=== PATIENT | male | born 1960 | race Caucasian/White ===

== ENCOUNTER 2018-09-25 10:34 | Emergency (ER) | payer BC, OTHER ==
[~2018-09-25] VITALS: Ht 175.3 cm; Wt 86.2 kg
--- OUTSIDE RECORDS SUMMARY | 2018-09-25 10:39 | XMS REPORT ---
Author Author RAFAL PATEL [facility] Address [address] [place], [place] [id number] Care Team Providers Care Fill Technician Name Role Phone RAFAL PATEL PCP Allergies and Adverse Reactions Name Reaction Notes NO KNOWN DRUG ALLERGIES Plan of Treatment Not available. Medications Not available. Problem List Not available. Vital Signs Date Time BP-Sys(mm[Hg] BP-Kalpana(mm[Hg]) HR(bpm) RR(rpm) Temp WT HT HC BMI BSA BMI Percentile O2 Sat(%) 03/18/2017 7:58:00 AM 126 mmHg 84 mmHg 75 bpm 16 rpm 98.5 F 203 lbs 69 in 29.98 kg/m2 2.12 m2 98 % 03/03/2015 9:51:00 AM 140 mmHg 80 mmHg 72 bpm 18 rpm 98 F 199 lbs 69 in 29.3869 kg/m 2.0963 m 100 % Social History Name Description Comments Tobacco Never smoker Alcohol Use - Occasional Uses seatbelts History of Procedures Not available. Results Summary Not available. History Of Immunizations Not available. History of Past Illness Name Date of Onset Comments NO SIGNIFICANT MEDICAL HX GIVEN DOT Physical Mar 25 2015 7:02AM Encounter for CDL (commercial driving license) exam Mar 18 2017 7:59AM Payers Not available. History of Encounters Visit Date Visit Type Provider 03/18/2017 Office visit RAFAL OSMAN 03/03/2015 Office visit RAFAL OSMAN
--- OUTSIDE RECORDS SUMMARY | 2018-09-25 10:39 | XMS REPORT | Continuity of Care Document ---
Author Organization Unknown Address Unknown Allergies There is no data. Medications There is no data. Problems There is no data. Procedures There is no data. Results There is no data. Encounters ACCT No. Visit Date/Time Discharge Status Pt. Type Provider Facility Loc./Unit Complaint [id number] 03/18/2017 11:22:43 03/18/2017 23:59:59 [facility] Outpatient RAFAL PAETL [id number] 03/03/2015 15:16:48 03/03/2015 23:59:59 [facility] Outpatient RAFAL PATEL
[2018-09-25] MEDS ORDERED: TETANUS,DIPTH,PERTUSS P/F (BOOSTRIX) 0.5 ML VIAL IM ONE (11:15)
[2018-09-25] MEDS ORDERED: LIDOCAINE 1% INJ 20 ML 20 ML VIAL INJ ONE (11:15)
[2018-09-25] MEDS ORDERED: CEPH500T PO (11:46)
--- NOTE | 2018-09-25 11:46 | ED Upper Extremity ---
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 Nursing Sepsis Screen: No Definite Risk History of Present Illness Date Seen by Provider: Sep 25, 2018 Time Seen by Provider: 11:10 Initial Comments 17-year-old male presents with an injury to his right hand. He was wo rking with a thread grinder wheel follow cut his right hand on the dorsal surface. He is unsure of his last tetanus vaccine, however he believes it was at least 5-8 years ago. He is right-hand dominant and denies any other problems. Onset: just prior to arrival Pain/Injury Location: right hand Method of Injury: incised Allergies and Home Medications Allergies Coded Allergies: No Known Drug Allergies (Unverified , 09/25/18) Home Medications Cephalexin 500 Mg Tablet, 500 MG PO TID Prescribed by: TEGAN JOHNSON on 09/25/18 1146 Patient Home Medication List Home Medication List Reviewed: Yes Review of Systems Constitutional: no symptoms reported, see HPI Skin: see HPI, other (laceration right hand) Past Dbboorq-Kxblno-Tzoudt Hx Past Med/Social Hx: Reviewed Nursing Past Med/Soc Hx Patient Social History Alcohol Use: Occasionally Uses Recreational Drug Use: No Smoking Status: Never a Smoker 2nd Hand Smoke Exposure: No Recent Foreign Travel: No Contact w/Someone Who Travel: No Recent Infectious Disease Expo: No Recent Hopitalizations: No Seasonal Allergies Seasonal Allergies: No Past Medical History Surgeries: Yes (CARPAL TUNNEL) Respiratory: No Cardiac: No Neurological: No Genitourinary: No Musculoskeletal: No Endocrine: No HEENT: Yes ("WARTS ON VOICEBOX") Psychosocial: No Physical Exam Vital Signs Vital Signs - First Documented 09/25/18 10:48 Temp 98.4 Pulse 87 Resp 20 B/P (MAP) 151/94 (113) Pulse Ox 100 Capillary Refill : Less Than 3 Seconds Height, Weight, BMI Height: 5'9.00" Weight: 190lbs. 0oz. 86.545553si; BMI Method:Stated General Appearance: WD/WN, no apparent distress Cardiovascular: normal peripheral pulses, regular rate, rhythm, no edema, no murmur Respiratory: chest non-tender, lungs clear, normal breath sounds Hand: normal ROM, Right, laceration (2.5 cm dorsum right hand), soft tissue tenderness Neurologic/Tendon: normal sensation, normal motor functions, normal tendon functions Neurologic/Psychiatric: no motor/sensory deficits, alert, normal mood/affect, oriented x 3 Skin: normal color Procedures/Interventions Wound Location: Upper Extremities (right hand, dorsum) Wound Length (cm): 2.5 Wound's Depth, Shape: superficial Wound Explored: clean Irrigated w/ Saline (ccs): 500 Betadine Prep?: Yes Anesthesia: 1% Lidocaine Volume Anesthetic (ccs): 5 Suture: Ethlion Suture Size: 4-0 Number of Sutures: 3 Sterile Dressing Applied?: Yes Progress 3 vertical mattress sutures, wound well approximated, no active bleeding. Sterile bulky dressing applied. Progress/Results/Core Measures Results/Orders My Orders Orders - TEGAN JOHNSON Dipht,Pertuss(Acell),Tet Adult (Boostrix (09/25/18 11:15) Lidocaine 1% Inj 20 Ml (Xylocaine 1% Inj (09/25/18 11:15) Medications Given in ED Current Medications Medications Dose Ordered Sig/Angelique Route Start Time Stop Time Status Last Admin Dose Admin Diphtheria/ Tetanus/Acell Pertussis 0.5 ml ONCE ONCE IM 09/25/18 11:15 09/25/18 11:16 DC 09/25/18 11:18 0.5 ML Lidocaine HCl 20 ml ONCE ONCE INJ 09/25/18 11:15 09/25/18 11:16 DC 09/25/18 11:19 20 ML Vital Signs/I&O 09/25/18 10:48 Temp 98.4 Pulse 87 Resp 20 B/P (MAP) 151/94 (113) Pulse Ox 100 Blood Pressure Mean: 113 Departure Impression Primary Impression: Laceration of right hand Qualified Codes: S61.411A - Laceration without foreign body of right hand, initial encounter Disposition: HOME, SELF-CARE Condition: Improved Departure-Patient Inst. Decision time for Depature: 11:40 Patient Instructions: Laceration Repair With Stitches (DC) Add. Discharge Instructions: Keep wound clean and dry for the next 24 hours and shower as normal. After showering apply peroxide and cover with a dressing or Band-Aid. May leave open to air, when at home. Take antibiotics as prescribed. You may alternate between Tylenol 650 mg and ibuprofen 600 mg every 4 hours for pain. Ice and elevate the hand for 20 minutes every 2 hours for swelling or pain. Avoid submerging the hand in water: Swimming pool, hot tubs, hot tubs, lakes or pascual. Showers are ok, just don't let water run directly at wound. Return to emergency department or see her primary care provider in 7-10 days for suture removal. Return to emergency department for increased redness, temperature greater than 101, discolored/foul-smelling drainage, or any new concerns. All discharge instructions reviewed with patient and/or family. Voiced understanding. Scripts Cephalexin (Cephalexin) 500 Mg Tablet 500 MG PO TID, #15 TAB 0 Refills Prov: TEGAN JOHNSON 09/25/18 Copy Copies To 1: JOSEPHINE WALDRON MD, AMY ARNP Sep 25, 2018 11:46
[2018-09-25 11:50] VITALS: BP 139/58
== END 2018-09-25 12:00 | disposition home or self-care (01) ==
LOC: EDUNIT# 10:34 → ER 10:35
DX: S61.411A Laceration without foreign body of right hand, initial encounter (principal); W29.8XXA Contact with other powered hand tools and household machinery, initial encounter
CPT/HCPCS: 90471; 90715; 99282